=== PATIENT | male | born 1990 | race Caucasian/White ===

== ENCOUNTER 2024-05-15 16:23 | Emergency (ER) | payer OTHER, SELFPAY ==
--- NOTE | ~2024-05-15 | US_ITS ---
EXAMINATION: US scrotum doppler DATE: 05/15/2024 17:02 INDICATION: Scrotal pain TECHNIQUE: Testicular sonogram utilizing grayscale and Doppler COMPARISON: None. FINDINGS: The right testis measures 5.1 x 2.5 x 3.8 cm. The left testis measures 5.3 x 2.6 x 3.3 cm. Symmetric normal grayscale appearance to both testes. There is normal vascular flow to both testes. The right e pididymis is normal with normal vascular flow. The left epididymis is normal with normal vascular didi w. Mild left varicocele. No hydrocele. IMPRESSION: 1. Mild left varicocele. Otherwise normal scrotal ultrasound. Reviewed, dictated and finalized at location A.
[2024-05-15 16:24] VITALS: BP 167/95; PULSE 105; RESP 19; TEMP 36.4; O2SAT 100
[2024-05-15 16:44] LABS: Add Urine Microscopic? NO; Appearance Urine Clear (Clear); Bilirubin Urine Negative (Negative); Blood Urine Negative (Negative); Color Urine Yellow (Yellow); Glucose Urine UA Negative (Negative); Ketones Urine Negative (Negative); Leukocyte Esterase Ur Negative LEU/UL (Negative); Nitrate Urine Negative (Negative); Protein Urine Negative (Negative); Specific Grav Ur 1.012 (1.001-1.035); Urobilinogen Urine 0.2 mg/dL (<2.0); pH Urine 5.5 (5.0-9.0)
--- NOTE | 2024-05-15 18:33 | ED_ITS ---
HPI - General Adult General Chief complaint: Urogenital-Male Stated complaint: bilat testicular numbness Time Seen by Provider: 05/15/24 18:06 Source: patient Mode of arrival: ambulatory Limitations: no limitations History of Present Illness HPI narrative: This is a 33-year-old male who presents to the ED for chief complaint bilateral testicular numbness and discomfort over the past 2 weeks. Reports that is inte rmittent but there is a constant dull feeling. Reports no alteration of sensation but no complete numbness. Denies back trauma or injury. Denies lower extremity numbness, weakness, saddle anesthesia. Denies loss of control of bowel or bladders. Denies fevers, chills, urinary symptoms, flank pain, abdominal pain, lower extremity pain. Related Data Allergies Allergy/AdvReac Type Severity Reaction Status Date / Time No Known Allergies Allergy Verified 05/15/24 16:32 Review of Systems Review of Systems: All systems as dictated in HPI Exam Narrative: GENERAL: Well-appearing, well-nourished, and in no acute distress. HEAD: Normocephalic, atraumatic. EYES: PERRLA and EOMI. ENT: Nares clear, no rhinorrhea or epistaxis. Mucous membranes moist. Oropharynx without tonsillar hypertrophy exudate or other lesions. NECK: Supple. No adenopathy or masses. CHEST: No respiratory distress. Clear to auscultation. No wheezes rales or rhonchi HEART: Regular rate and rhythm. No murmur heard. Normal peripheral pulses. ABDOMEN: Soft, nontender, nondistended, normal active bowel sounds. MSK: Normal range of motion. No edema. SKIN: Warm, dry, no rash. NEURO: Alert and oriented x4. No focal deficits. PSYCH: Normal mood and affect. : Testicular exam does reveal mild varicosity on the left side. Overall no swelling or tenderness. Penile shaft normal. External meatus normal. No rash. No hernia Course Vital Signs Vital signs: Vital Signs Temperature 97.6 F 05/15/24 16:24 Pulse Rate 105 H 05/15/24 16:24 Respiratory Rate 19 05/15/24 16:24 Blood Pressure 167/95 H 05/15/24 16:24 Pulse Oximetry 100 05/15/24 16:24 Oxygen Delivery Room Air 05/15/24 16:24 Temperature 97.8 F 05/15/24 19:10 Pulse Rate 76 05/15/24 19:10 Respiratory Rate 18 05/15/24 19:10 Blood Pressure 129/87 05/15/24 19:10 Pulse Oximetry 98 05/15/24 19:10 Oxygen Delivery Room Air 05/15/24 16:24 Medical Decision Making MDM Narrative Medical decision making narrative: This is a 33 yo male who presents to the ED for chief complaint of bilateral testicular discomfort/numbness for the past 2 weeks. Vitals are normal. Exam shows a relatively unremarkable testicular exam. There is some very mild swelling of the left testicle. No hernia. No tenderness. Urinalysis is completely unremarkable. Patient has no concerns for STDs. Ultrasound shows mild left varicocele but otherwise normal. Patient will be discharged in stable condition. Supportive measures discussed and return precautions given. Patient is understanding and agreeable with plan for discharge with PCP follow-up. Urology referral given as well Vital Signs Vital Signs: Vital Signs Temperature 97.6 F 05/15/24 16:24 Pulse Rate 105 H 05/15/24 16:24 Respiratory Rate 19 05/15/24 16:24 Blood Pressure 167/95 H 05/15/24 16:24 Pulse Oximetry 100 05/15/24 16:24 Oxygen Delivery Room Air 05/15/24 16:24 Temperature 97.8 F 05/15/24 19:10 Pulse Rate 76 05/15/24 19:10 Respiratory Rate 18 05/15/24 19:10 Blood Pressure 129/87 05/15/24 19:10 Pulse Oximetry 98 05/15/24 19:10 Oxygen Delivery Room Air 05/15/24 16:24 Lab Data Labs: Lab Results 05/15/24 Range/Units 16:37 Urine Color Yellow (Yellow) Urine Appearance Clear (Clear) Urine pH 5.5 (5.0-9.0) Ur Specific [place] 1.012 (1.001-1.035) Urine Protein Negative (Negative) mg/dL Urine Glucose (UA) Negative (Negative) mg/dL Urine Ketones Negative (Negative) mg/dL Ur Blood (Man) Negative (Negative) Urine Nitrate Negative (Negative) Urine Bilirubin Negative (Negative) Urine Urobilinogen 0.2 (<2.0) mg/dL Leukocyte Esterase Rfl Negative (Negative) MARIO/UL Discharge Plan Discharge Clinical Impression: Testicular discomfort, Left varicocele Patient Disposition: Home, Self-Care Condition: Stable Instructions: Antibiotic Form Additional Instructions: Exam and imaging today are reassuring. There is a varicose vein on the left side. Please follow-up with your doctor on this. You may need to see Urology. If you have any new or worsening symptoms please return to the ER for further e valuation. Follow-up/Referrals: PHYSICIAN,DEPUTY CLERK OF COURT [Primary Care Provider] - Phil Olea MD [Physician] - Time of Disposition: 19:08
[2024-05-15 19:10] VITALS: BP 129/87; PULSE 76; RESP 18; TEMP 36.6; O2SAT 98
== END 2024-05-15 19:15 | disposition home or self-care (01) ==
PROVIDERS: Physician Assistant; Emergency Provider Physician Assistant
DX: I86.1 Scrotal varices (principal)
CPT/HCPCS: 76870; 81003; 93976; 99284

== ENCOUNTER 2024-05-30 09:19 | Outpatient (CLI) | payer OTHER, SELFPAY ==
[2024-05-30 10:16] LABS: Basophils Absolute Auto 0.1 K/mm3 (0.0-0.1); Basophils Percent Auto 0.9 % (0.2-1.2); Eosinophils Absolute Auto 0.1 K/mm3 (0-0.3); Eosinophils Percent Auto 2.3 % (0-4.4); Hematocrit 43.8 % (42.0-52.0); Hemoglobin 15.2 g/dL (14.0-18.0); Immature Granulocyte Absolute 0.01 K/mm3 (0.00-0.031); Immature Granulocyte Percent A 0.2 % (0-0.5); Lymphocytes Absolute Auto 1.69 K/mm3 (0.9-3.2); Lymphocytes Percent Auto 31.8 % (18.3-44.2); Mean Corpuscular HGB Conc 34.7 g/dl (32-36); Mean Corpuscular Hemoglobin 32.8 pg (26-34); Mean Corpuscular Volume 94.4 fl (80-100); Mean Platelet Volume 9.5 fl (7.4-10.4); Monocytes Absolute Auto 0.5 K/mm3 (0.1-0.6); Monocytes Percent Auto 9.6 % (2.6-8.5); Neutrophils Absolute Auto 2.9 K/mm3 (1.3-6.7); Neutrophils Percent Auto 55.2 % (45.5-73.1); Platelet Count Result 234 k/mm3 (150-375); Red Blood Count 4.64 M/mm3 (4.6-6.20); Red Cell Distribution Width 12.2 % (11.5-14.5); White Blood Count 5.3 K/mm3 (4.5-10.0)
[2024-05-30 10:20] LABS: Add Urine Microscopic? NO; Appearance Urine Clear (Clear); Bilirubin Urine Negative (Negative); Blood Urine Negative (Negative); Color Urine Yellow (Yellow); Glucose Urine UA Negative (Negative); Ketones Urine Negative (Negative); Leukocyte Esterase Ur Negative LEU/UL (Negative); Nitrate Urine Negative (Negative); Protein Urine Negative (Negative); Specific Grav Ur 1.005 (1.001-1.035); Urobilinogen Urine 0.2 mg/dL (<2.0); pH Urine 5.5 (5.0-9.0)
[2024-05-30 10:26] LABS: Alanine Aminotransferase 23 U/L (6-50); Albumin Level 4.7 g/dL (3.5-5.1); Alkaline Phosphatase 58 U/L (38-126); Anion Gap 9 mmol/L (4-12); Aspartate Amino Transferase 28 U/L (17-59); Bilirubin,Total 0.8 mg/dL (0.2-1.3); Blood Urea Nitrogen 14 mg/dL (9-20); Calcium 9.6 mg/dL (8.4-10.2); Carbon Dioxide 24 mmol/L (22-30); Chloride 104 mmol/L (98-107); Cholesterol 164 mg/dL (0-200); Estimated Glomerular Filt Rate > 60; Glucose 94 mg/dL (65-110); HDL Direct 70 mg/dL; Potassium 4.4 mmol/L (3.4-5.0); Sodium 137 mmol/L (137-145); Triglycerides 45 mg/dL (<150)
[2024-05-30 10:37] LABS: LDL Cholesterol Direct 74 mg/dL
[2024-05-30 11:04] LABS: Thyroid Stimulating Hormone 0.684 uIU/mL (0.465-4.680)
[2024-05-30 12:49] LABS: Vitamin D 25 Hydroxy 60.3 ng/mL
[2024-06-01 18:24] LABS: Folic Acid 7.1 ng/mL (2.76->20)
== END 2024-05-30 09:20 | disposition home or self-care (01) ==
LOC: ANHLAB 09:20
PROVIDERS: Visit Provider Nurse Practitioner
DX: J32.9 Chronic sinusitis, unspecified (principal); R53.81 Other malaise; E55.9 Vitamin D deficiency, unspecified; Z00.00 Encounter for general adult medical examination without abnormal findings; Z13.21 Encounter for screening for nutritional disorder
CPT/HCPCS: 36415; 80053; 80061; 81003; 82306; 82607; 82746; 84443; 85025